=== PATIENT | male | born 1990 | race Caucasian/White ===

== ENCOUNTER 2016-07-20 12:46 | Emergency (ER) | payer OTHER ==
[~2016-07-20] VITALS: Ht 167.6 cm; Wt 102.1 kg
[2016-07-20 13:35] LABS: ABSOLUTE BASOPHIL COUNT 0 /CUMM (0.0-0.2); ABSOLUTE EOSINOPHIL COUNT 0.2 /CUMM (0.0-0.7); ABSOLUTE GRANULOCYTE CT 4.1 /CUMM (1.4-6.5); ABSOLUTE MONOCYTE COUNT 0.4 /CUMM (0.10-0.60); BASOPHIL % 0.6 % (0.0-2.0); EOSINOPHIL % 2.5 % (0-5); GRANULOCYTE % 61.3 % (42.2-75.2); MEAN CORPUSCULAR HGB 31.3 PG (27.0-31.0); MEAN CORPUSCULAR HGB CONC 34.4 G/DL (33.0-37.0); MEAN CORPUSCULAR VOLUME 90.8 FL (80.0-94.0); MEAN PLATELET VOLUME 8.9 FL (7.4-10.4); PLATELET COUNT 230 /CUMM (130-400); RBC DISTRIBUTION WIDTH 12.4 % (11.5-14.5); RED BLOOD CELL CT 5.18 /CUMM (4.70-6.10); WHITE BLOOD CELL COUNT 6.6 /CUMM (4.8-10.8)
--- NOTE | 2016-07-20 14:38 | ED SYNCOPE COMPLAINT ---
History of Present Illness General Chief Complaint: Syncope and Near-Syncope Stated Complaint: SIB MD ESPOSITO FOR SYNCOPAL EPISODE THIS AM Source: patient, family, old records Exam Limitations: no limitations Vital Signs & Intake/Output Vital Signs & Intake/Output Vital Signs Date Time Temp Pulse Resp B/P Pulse O2 O2 Flow FiO2 Ox Delivery Rate 07/20 1300 97.6 68 20 139/88 94 Room Air Allergies Coded Allergies: NO KNOWN ALLERGIES (09/21/12) Reconcile Medications No Known Home Medications Triage Note: "I FAINTED THIS MORNING" PT HAD NOSE BLEED FOR APPROX 5 MINUTES, PT FELT DIZZY AND PASSED OUT FOR A FEW SECONDS. Triage Nurses Notes Reviewed? yes Timing: single episode today Precipitating Factors: diaphoresis, lightheadedness Context: nose bleed Loss of Consciousness: dazed Associated Symptoms: denies HPI: We 6-year-old male with no medical history presents emergency room after he had a brief syncopal episode at 4 AM this morning. He states he awoke in the middle of the night with a nosebleed for which she went into the bathroom to apply pressure when he states that he suddenly became lightheaded and clammy diaphoretic and felt palpitations which time he states that he fell over he did not hit his head. He states his girlfriend was present and he came to immediately. He states that since he's been feeling tired however denies any associated chest pain palpitation shortness of breath. No history of similar episodes in the past no history of family history of sudden cardiac disease. The patient otherwise denies any episodes since. He denies any other complaints at this time. Past History Travel History Traveled to [place] past 21 day No Medical History Any Pertinent Medical History? none Tetanus Vaccine: 09/21/12 Surgical History Surgical History: none Psychosocial History What is your primary language Sudanese Tobacco Use: Never used ETOH Use: denies use Illicit Drug Use: denies illicit drug use Family History Hx Contributory? No Review of Systems Review of Systems Constitutional: Reports: see HPI. All Other Systems: Reviewed and Negative Comments Review of systems: See HPI, All other systems negative. Constitutional, no chills no fever, no malaise HEENT: No visual changes no sore throat no congestion, Cardiovascular: No chest pain , no palpitation Skin, no rashes, no change in skin Respiratory: No dyspnea no cough no sputum GI: No nausea no vomiting, no diarrhea, : No dysuria Muscle skeletal: No joint pain, no back pain, no neck pain, Neurologic: No numbness n no headache Psych: No stress Heme/endocrine: No bruising no bleeding Immunology: No lymphadenopathy Physical Exam Physical Exam General Appearance: well developed/nourished, no apparent distress, alert, awake , comfortable Cranial Nerves: normal hearing, normal speech, PERRL Comments: Well-developed well-nourished person in no acute distress HEENT: Normal EENT exam; PERRL, EOMI, no nystagmus. HEAD is atraumatic. moist mucous membranes. No dry blood noted to the nostrils no septal hematoma no active bleeding Neck: Supple, no lymphadenopathy, normal range of motion Back: Nontender, no CVA tenderness. Full range of motion Cardiovascular: Regular rate and rhythms no murmurs rubs or gallops, normal JVP Respiratory: Chest nontender.There were no bony deformities, no asymmetry. No respiratory distress. Patient speaking in full complete sentences. Breath sounds clear to auscultation bilaterally: NO W/R/R Abdomen: Soft, nontender Extremity: No edema, full range of motion of extremities Neuro: Alert oriented x3, motor sensory normal, cranial nerves II through XII grossly intact. There were no obvious focal neurologic abnormalities. Skin: No appreciable rash on exposed skin, skin is warm and dry. Psych: Mood and affect is normal, memory and judgment is normal. Core Measures ACS in differential dx? Yes CVA/TIA Diagnosis: No Severe Sepsis Present: No Septic Shock Present: No Progress Differential Diagnosis: AMI, aortic valve, drug induced syncope, orthostatic syncope, pulmonary embolus, seizure, vasodepressor syncope Plan of Care: Orders Procedure Date/time Status TROPONIN LEVEL 07/20 1256 Complete COMPREHENSIVE METABOLIC PANEL 07/20 1256 Complete CBC WITHOUT DIFFERENTIAL 07/20 1256 Complete Laboratory Tests 07/20/16 1318: Anion Gap 14, Estimated GFR > 60, BUN/Creatinine Ratio 13.3, Glucose 156 H, Calcium 10.0, Total Bilirubin 3.5 H, AST 42, ALT 84 H, Alkaline Phosphatase 51 , Troponin I < 0.01, Total Protein 7.5, Albumin 4.8, Globulin 2.7, Albumin/ Globulin Ratio 1.8, CBC w Diff NO MAN DIFF REQ, RBC 5.18, MCV 90.8, MCH 31.3 H, RDW 12.4, MPV 8.9, Gran % 61.3, Lymphocytes % 29.8, Monocytes % 5.8, Eosinophils % 2.5, Basophils % 0.6, Absolute Granulocytes 4.1, Absolute Lymphocytes 2.0, Absolute Monocytes 0.4, Absolute Eosinophils 0.2, Absolute Basophils 0, PUBS MCHC 34.4 Patient clinically appears well injury occurred 11 hours ago ambulatory with steady gait here in the emergency room looks well symptoms are consistent with a vasovagal episode discussed and educated the patient on these episodes as well as his mother. They feel comfortable with plan and will follow up with his primary care physician this week and return anytime sooner with any concerns (MI HAGAN,JEANNE) Departure Departure Time of Disposition: 1452 Disposition: HOME OR SELF CARE Condition: Stable Clinical Impression Primary Impression: Vasovagal syncope Referrals: DANIEL ESPOSITO MD (PCP/Family) Additional Instructions: Follow-up with Dr. Esposito. Return to emergency room at anytime sooner if he redevelops symptoms or have any other concerns Departure Forms: Customer Survey General Discharge Information Prescriptions: Current Visit Scripts No Known Home Medications
[2016-07-20 15:26] VITALS: BP 146/69
== END 2016-07-20 15:28 ==
LOC: ERH 12:46
PROVIDERS: Emergency Medicine
DX: R55 Syncope and collapse (principal)